=== PATIENT | male | born 1950 | race African-American/Black ===

== ENCOUNTER 2021-08-26 09:41 | Emergency (ER) | payer OTHER ==
[~2021-08-26] VITALS: Ht 177.8 cm; Wt 64.0 kg
[2021-08-26] MEDS ORDERED: ACETAMINOPHEN 325MG TABLET PO STA (10:19)
[2021-08-26] MEDS ORDERED: SODIUM CHLORIDE 0.9% 1000ML BAG (SEPSIS BOLUS) IV ONE (10:30)
[2021-08-26] MEDS ORDERED: VANCOMYCIN 1 G PREMIX 200 ML IV ONE (10:30)
[2021-08-26] MEDS ORDERED: PIPERACILLIN/TAZ 3.375G PREMIX 50 ML IV ONE (10:30)
[2021-08-26 10:56] LABS: HEMATOCRIT. 29.2 % (42.0-52.0); HEMOGLOBIN. 8.9 g/dL (14.0-18.0); MEAN CORPUSCULAR HEMOGLOBIN 27.7 pg (28.0-32.0); MEAN CORPUSCULAR VOLUME 90.6 fL (80.0-94.0); MEAN PLATELET VOLUME 8.1 fl (7.4-10.4); PLATELET 347 x1000/uL (130-400); RED BLOOD CELL COUNT 3.22 mill/uL (4.7-6.1); RED CELL DISTRIBUTION WIDTH 20.5 % (11.6-14.6)
[2021-08-26 11:01] LABS: CHLORIDE 102 mEq/L (98-107)
[2021-08-26 12:37] LABS: PLATELET ESTIMATE NORMAL
[2021-08-26 13:36] LABS: CLARITY URINE CLOUDY (CLEAR); COLOR URINE RED (YELLOW); KETONES URINE TRACE (NEGATIVE); LEUKOCYTE ESTERASE URINE 1+ (NEGATIVE); NITRITE URINE NEGATIVE (NEGATIVE); OCCULT BLOOD URINE NEGATIVE (NEGATIVE); PROTEIN URINE 3+ (NEGATIVE); SPECIFIC GRAVITY URINE 1.021 (1.005-1.030)
[2021-08-26 21:37] VITALS: BP 163/77
== END 2021-08-26 21:48 | disposition short-term general hospital (02) ==
LOC: ER 09:41 → CANBEDREQ 08-27 11:47
DX: A41.9 Sepsis, unspecified organism (principal); R00.0 Tachycardia, unspecified; I13.11 Hypertensive heart and chronic kidney disease without heart failure, with stage 5 chronic kidney disease, or end stage renal disease; E11.22 Type 2 diabetes mellitus with diabetic chronic kidney disease; N18.6 End stage renal disease; Z99.2 Dependence on renal dialysis
CPT/HCPCS: 36415; 71045; 80053; 81003; 83605; 84145; 85025; 87040; 87086; 93005; 96365; 96368; 99291; J2543; J3370; J7030